=== PATIENT | female | born 1950 ===

== ENCOUNTER 2021-08-25 06:00 | Outpatient (RCR) | payer MEDICARE, OTHER, SELFPAY | END 2021-09-17 23:59 | disposition home or self-care (01) | LOC: WPT 06:00 | PROVIDERS: Referring Provider Orthopaedic Surgery; Visit Provider Orthopaedic Surgery | DX: M17.12 Unilateral primary osteoarthritis, left knee (principal) | CPT/HCPCS: 97110; 97112; 97116; 97161 ==

== ENCOUNTER 2021-09-18 06:00 | Outpatient (RCR) | payer MEDICARE, OTHER, SELFPAY | END 2021-10-18 23:59 | disposition home or self-care (01) | LOC: WPT 06:00 | PROVIDERS: Referring Provider Orthopaedic Surgery; Visit Provider Orthopaedic Surgery | DX: M17.12 Unilateral primary osteoarthritis, left knee (principal) | CPT/HCPCS: 97110; 97164 ==